=== PATIENT | male | born 1995 | race Caucasian/White ===

== ENCOUNTER 2019-08-15 11:34 | Emergency (ER) | payer BC ==
[~2019-08-15] VITALS: Ht 190.5 cm; Wt 102.1 kg
[2019-08-15 11:57] VITALS: BP 133/78
[2019-08-15] MEDS ORDERED: PROM118S9 PO (11:57)
[2019-08-15] MEDS ORDERED: MELO7.5T29 PO (11:57)
[2019-08-15] MEDS ORDERED: AMOX500T PO (11:57)
--- NOTE | 2019-08-15 11:58 | PHYS DOC ---
Past History Past Medical History: No Pertinent History Past Surgical History: No Surgical History Smoking: Non-smoker Alcohol Use: None Drug Use: None Adult General Chief Complaint Chief Complaint: DENTAL PROBLEM HPI HPI Patient is a 24-year-old male presents complaining of right facial pain, right nostril congestion, pain radiating into his teeth on the right side, upper. No fever. This has been going on for the past 3 or 4 days. He has not sought any previous health care for this. No relief with ibuprofen. Pain is moderate to severe. No difficulty breathing or swallowing through his mouth. No neck pain or stiffness.[] Review of Systems Review of Systems Constitutional: Denies fever or chills [] Eyes: Denies change in visual acuity, redness, or eye pain [] HENT: See history of present illness[] Respiratory: Denies cough or shortness of breath [] Cardiovascular: No chest pain or palpitations[] GI: Denies abdominal pain, nausea, vomiting, bloody stools or diarrhea [] : Denies dysuria or hematuria [] Musculoskeletal: Denies back pain or joint pain [] Integument: Denies rash or skin lesions [] Neurologic: Denies headache, focal weakness or sensory changes [] Endocrine: Denies polyuria or polydipsia [] All other systems were reviewed and found to be within normal limits, except as documented in this note. Physical Exam Physical Exam Constitutional: Well developed, well nourished, no acute distress, non-toxic appearance. [] HENT: Normocephalic, atraumatic, bilateral external ears normal, oropharynx moist, no oral exudates, nose normal. Right-sided sinus axillary tenderness to percussion. No dental tenderness to percussion, no elevation of the tongue, uvula is midline. No swelling of the tonsils.[] Eyes: PERRLA, EOMI, conjunctiva normal, no discharge. [] Neck: Normal range of motion, no tenderness, supple, no stridor. [] Cardiovascular:Heart rate regular rhythm, no murmur [] Lungs & Thorax: Bilateral breath sounds clear to auscultation [] Abdomen: Not examined. [] Skin: Warm, dry, no erythema, no rash. [] Back: No tenderness, no CVA tenderness. [] Extremities: No tenderness, no cyanosis, no clubbing, ROM intact, no edema. [] Neurologic: Alert and oriented X 3, normal motor function, normal sensory function, no focal deficits noted. [] Psychologic: Affect normal, judgement normal, mood normal. [] EKG EKG [] Radiology/Procedures Radiology/Procedures [] Course & Med Decision Making Course & Med Decision Making Pertinent Labs and Imaging studies reviewed. (See chart for details) Medical decision making: Patient appears to have sinusitis, nontoxic patient. No evidence of peritonsillar abscess, [place] exam should not, nor airway compromise. Will start him on oral outpatient medication for this. ED course: Patient arrived, was placed in bed, and tolerated exam well. He was discharged in improved condition with all questions answered.[] Dragon Disclaimer Dragon Disclaimer This electronic medical record was generated, in whole or in part, using a voice recognition dictation system. Departure Departure: Impression: Primary Impression: Sinusitis Disposition: HOME, SELF-CARE Condition: IMPROVED Referrals: PCP,NO (PCP) Patient Instructions: Sinusitis Additional Instructions: Drink plenty of fluids. Follow-up with your regular doctor in 2 days. If you do not have regular doctor list of local clinics will be provided for you. Return to the ER if worsening pain or any other concerns. Scripts D-Methorphan Hb/Prometh Hcl (PROMETHAZINE-DM SYRUP) 118 Ml Syrup 5 ML PO PRN Q4HRS for CONGESTION, #120 ML Prov: LAWRENCE URIAS DO 08/15/19 Meloxicam (MELOXICAM) 7.5 Mg Tablet 7.5 MG PO DAILY for PAIN, #20 TAB Prov: LAWRENCE URIAS DO 08/15/19 Amoxicillin (AMOXICILLIN) 500 Mg Tablet 500 MG PO TID for sinusitis, #30 TAB Prov: LAWRENCE URIAS DO 08/15/19 Problem Qualifiers Primary Impression: Sinusitis Sinusitis location: maxillary Chronicity: acute Recurrence: not specified as recurrent Qualified Codes: J01.00 - Acute maxillary sinusitis, unspecified LAWRENCE URIAS DO Aug 15, 2019 11:57
== END 2019-08-15 12:07 | disposition home or self-care (01) ==
LOC: ER 11:34
DX: J01.00 Acute maxillary sinusitis, unspecified (principal)
CPT/HCPCS: 99283